=== PATIENT | male | born 1985 | race Caucasian/White ===

== ENCOUNTER 2017-07-20 21:47 | Emergency (ER) | payer SELFPAY ==
[~2017-07-20] VITALS: Ht 180.3 cm; Wt 90.7 kg
[2017-07-20 21:54] VITALS: BP 133/90
--- NOTE | 2017-07-20 22:27 | NUR ---
PT RETURN FROM RADIOLOGY TO THE LOBBY
--- NOTE | 2017-07-20 23:30 | NUR ---
Note sharlene in EDM - 07/21/17 at 0114 by BRIAN Patient discharged with v/s stable. Written and verbal after care instructions given and explained. Patient alert, oriented and verbalized understanding of instructions. Ambulatory with steady gait. All questions addressed prior to discharge. ID band removed. Patient advised to follow up with PMD. Rx of TYLENOL #3 AND NAPROSYN 500MG given. Patient educated on indication of medication including possible reaction and side effects. Opportunity to ask questions provided and answered.
--- NOTE | 2017-07-20 23:30 | NUR ---
PATIENT PRESENTS TO ED WITH C/O LEFT ELBOW PAIN S/P FALL FROM RIDING SCOOTER . PT DENIES N/V/D OR LOC AT THE MOMENT; SKIN IS PINK/WARM/DRY; AAOX4 WITH EVEN AND STEADY GAIT; LUNGS CLEAR BL; HR EVEN AND REGULAR; PT DENIES ANY FEVER, CP, SOB, OR COUGH AT THIS TIME; PATIENT STATES PAIN OF 10/10 AT THIS TIME; VSS; PATIENT POSITIONED FOR COMFORT; HOB ELEVATED; BEDRAILS UP X2; BED DOWN. ER MD MADE AWARE OF PT STATUS.
--- NOTE | 2017-07-20 23:30 | NUR ---
PT TAKEN TO BED 6
[2017-07-20] MEDS ORDERED: HYDROcodone/APAP 5/325 MG 1 TAB TAB PO ONE (23:35)
[2017-07-20] MEDS ORDERED: KETOROLAC 30 MG/ML VIAL IM ONE (23:35)
--- NOTE | 2017-07-20 23:38 | NUR ---
Dr. Cuadra evaluating patient at bedside.
[2017-07-21 00:40] VITALS: BP 129/86
--- NOTE | 2017-07-21 00:40 | NUR ---
Patient discharged with v/s stable. Written and verbal after care instructions given and explained. Patient alert, oriented and verbalized understanding of instructions. Ambulatory with steady gait. All questions addressed prior to discharge. ID band removed. Patient advised to follow up with PMD. Rx of TYLENOL #3 AND NAPROSYN 500MG given. Patient educated on indication of medication including possible reaction and side effects. Opportunity to ask questions provided and answered.
== END 2017-07-21 00:40 | disposition home or self-care (01) ==
LOC: MED 21:47
DX: S52.122A Displaced fracture of head of left radius, initial encounter for closed fracture (principal); S50.312A Abrasion of left elbow, initial encounter; V87.8XXA Person injured in other specified noncollision transport accidents involving motor vehicle (traffic), initial encounter; Y93.I9 Activity, other involving external motion; Y92.488 Other paved roadways as the place of occurrence of the external cause; Y99.8 Other external cause status
CPT/HCPCS: 29105; 73080; 73100; 96372; 99284; J1885; Q0092